=== PATIENT | male | born 1950 | race Caucasian/White ===

== ENCOUNTER 2022-01-03 08:27 | Emergency (ER) | payer MEDICARE ==
[2022-01-03 10:02] LABS: INR-International Normal Ratio 1.2
[2022-01-03 10:03] LABS: PTT 36.6 sec (22.9-36.1)
[2022-01-03 10:07] LABS: ALT (SGPT) 24 U/L (8-55); AST (SGOT) 20 U/L (5-34); Albumin 3.4 g/dL (3.4-4.8); Alkaline Phosphatase 74 U/L (40-110); Anion Gap 15 mmol/L (10-20); BUN (Urea Nitrogen) 10 mg/dL (8.4-25.7); Bilirubin, Total 0.8 mg/dL (0.2-1.2); Calc. Creatinine Clearance 0 mL/min (70-130); Calcium 7.9 mg/dL (7.8-10.44); Carbon Dioxide 24 mmol/L (23-31); Globulin 2.4 g/dL (2.4-3.5); Glucose 196 mg/dL (83-110); Protein, Total 5.8 g/dL (5.8-8.1)
[2022-01-03 10:10] LABS: Chloride 73 mmol/L (98-107); Sodium 109 mmol/L (136-145)
[2022-01-03 10:15] LABS: Hemoglobin 11.4 g/dL (14.0-18.0); Mean Corpuscular HGB CONC 37.7 g/dL (32.0-36.0); Mean Corpuscular Hemoglobin 33.1 pg (27.0-31.0); Mean Corpuscular Volume 87.8 fL (78.0-98.0); Mean Platelet Volume 7.9 fL (7.4-10.4); Platelet Count 503 thou/uL (130-400); RBC Distribution Width 10.6 % (11.5-14.5); Red Blood Cell (RBC) Count 3.46 mill/uL (4.70-6.10)
[2022-01-03 10:18] LABS: Band 2 % (5-11); Lymphocytes 4 % (21-51); MDiff Complete? YES; Monocytes 1 % (0-10); Neutrophil 93 % (42-75); Platelet Morphology Comment Appears Increased; RBC Morphology Normal
[2022-01-03 11:57] LABS: Bilirubin Negative (Negative); Blood, Urine Negative (Negative); Clarity Cloudy (Clear); Glucose, Urine (Dipstick) 500 mg/dL (Negative); Ketone, Urine Negative (Negative); Leukocyte Negative (Negative); Nitrite Negative (Negative); Protein, Urine (Dipstick) Trace mg/dL (Neg-Trace)
[2022-01-03 11:58] LABS: Specific Gravity, Urine 1.027 (1.002-1.036)
[2022-01-03] MEDS ORDERED: cefTRIAXone\\ROCEPHIN 2 GM VIAL ONE (12:14)
[2022-01-03] MEDS ORDERED: Sodium Chloride 0.9% 100 ML ONE (12:14)
[2022-01-03] MEDS ORDERED: Fentanyl 100 MCG/2 ML VIAL ONE (12:56)
[2022-01-03] MEDS ORDERED: Acetaminophen 500 MG TAB ONE (12:56)
== END 2022-01-03 13:52 | disposition short-term general hospital (02) ==
LOC: BURERS 08:27
DX: G89.18 Other acute postprocedural pain (principal); M54.50 Low back pain, unspecified; E87.1 Hypo-osmolality and hyponatremia; E87.6 Hypokalemia; E11.9 Type 2 diabetes mellitus without complications; I10 Essential (primary) hypertension; Z79.01 Long term (current) use of anticoagulants; Z79.84 Long term (current) use of oral hypoglycemic drugs; Z79.899 Other long term (current) drug therapy
CPT/HCPCS: 36415; 51701; 74177; 80053; 81003; 83605; 85025; 85610; 85730; 87040; 87086; 96365; 96367; 96368; 96375; J0696; J3010; J3370; J3490